=== PATIENT | female | born 1990 | race Caucasian/White ===

== ENCOUNTER 2016-09-06 14:16 | Emergency (ER) | payer OTHER ==
[2016-09-06 14:31] VITALS: BP 128/85; PULSE 76; RESP 16; TEMP 99.3; O2SAT 96
[2016-09-06] MEDS ORDERED: IBUPROFEN 600 MG TAB PO ONE (14:34)
--- NOTE | 2016-09-06 14:37 | EDPHY ---
H & P Stated Complaint: INJURED BACK TUESDAY, REINJURED TODAY Time Seen by Provider: 09/06/16 14:27 HPI/ROS: Chief Complaint: Back injury HPI: 26-year-old female injured her back 3 days ago at work when she was lifting a 30 lb box. She was bent over the lifted up then felt a spasm in her back. She has been having intermittent back spasm for the next day but was getting better. Patient bent over at work today to a tool box and stood up and had a spasm again. She is not taking any medication for this. No numbness or weakness. No history of prior back injuries. No fevers or chills. She is ambulating with discomfort but otherwise without complaint. Pain is in her mid over low back. She feels stiff after sitting down or lying down. Does get occasional spasms. ROS: 10 point Review of Systems is negative except as noted in the HPI. PMH: None Medications: None Allergies: No known drug allergies Social History: No smoking, occasional alcohol, no recreational drug use Family History: non-contributory Physical Exam: Gen: Awake, Alert, No Distress HEENT: Nose: no rhinorrhea Eyes: PERRLA, EOMI Mouth: Moist mucosa Neck: Supple, no JVD Chest: nontender, lungs clear to auscultation Heart: S1, S2 normal, no murmur Abd: Soft, non-tender, no guarding Back: no CVA tenderness, no midline tenderness moderate bilateral spasm Ext: no edema, non-tender Skin: no rash Neuro: CN II-XII intact, Sensation grossly intact, Strength 5/5 in bilateral upper and lower extremities - Personal History LMP (Females 10-55): 15-21 Days Ago Current Tetanus Diphtheria and Acellular Pertussis (TDAP): Unsure - Medical/Surgical History Hx Asthma: No Hx Chronic Respiratory Disease: No Hx Diabetes: No Hx Cardiac Disease: No Hx Renal Disease: No Hx Cirrhosis: No Hx Alcoholism: No Hx HIV/AIDS: No Hx Splenectomy or Spleen Trauma: No Other PMH: DENIES - Social History Smoking Status: Never smoked Constitutional: Initial Vital Signs Temperature (C) 37.4 C 09/06/16 14:25 Heart Rate 76 09/06/16 14:25 Respiratory Rate 16 09/06/16 14:25 Blood Pressure 128/85 H 09/06/16 14:25 O2 Sat (%) 96 09/06/16 14:25 O2 Delivery Mode Room Air Allergies/Adverse Reactions: No Known Allergies Allergy (Unverified 09/06/16 14:32) Home Medications: Medication Instructions Recorded NK [No Known Home Meds] 09/06/16 Medical Decision Making ED Course/Re-evaluation: 26-year-old with back spasms status post lifting injury 3 days ago. She has no red flags for acute neurologic process. No risk factors for epidural abscess or cauda equina. She has been given instructions for ice, ibuprofen, back exercises and follow up with primary care/work comp. Departure - Departure Disposition: Home, Routine, Self-Care Clinical Impression: Lumbar strain Condition: Good Instructions: Low Back Strain (ED), Lower Back Exercises (ED), Core Strengthening Exercises (ED) Additional Instructions: Take ibuprofen 600 mg 3 times a day. You may also take acetaminophen if you continue to have pain. Apply ice for 15 minutes of every hour while awake for the next 2 days. Is important to stay active and not "rest" your back. Not perform strenuous exercise or do heavy lifting but remain mobile. Follow up with workman's Comp in 2-3 days for re-evaluation. Referrals: Work Comp Referral [facility] [Outside] - As per Instructions Stand Alone Forms: Work Excuse, Work Comp Follow Up
== END 2016-09-06 14:51 | disposition home or self-care (01) ==
LOC: CED 14:16
DX: S39.012A Strain of muscle, fascia and tendon of lower back, initial encounter (principal); X58.XXXA Exposure to other specified factors, initial encounter; Y92.69 Other specified industrial and construction area as the place of occurrence of the external cause; Y99.0 Civilian activity done for income or pay; Y93.89 Activity, other specified